=== PATIENT | female | born 1990 | race Caucasian/White ===

== ENCOUNTER 2021-08-17 19:33 | Inpatient (IN) | payer OTHER ==
[~2021-08-17] VITALS: Ht 157.5 cm; Wt 97.5 kg
--- NOTE | ~2021-08-17 | OR ---
[facility] [address] [place], [place] [address] Draft DATE OF OPERATION: 08/17/2021 SURGEON: Denton Canas DO PREOPERATIVE DIAGNOSES: Spontaneous onset of labor, history of prior , insufficient care, substance use disorder. POSTOPERATIVE DIAGNOSIS: Spontaneous onset of labor, history of prior , insufficient care, substance use disorder plus term delivered. PROCEDURE: Repeat low transverse . RECRUITING OPERATIONS CONSULTANT: Dr. Brown. COMPLICATIONS: None. BLOOD LOSS: 400 mL. SPECIMENS: Placenta, cord blood, segment of cord. ANESTHESIA: Spinal. FINDINGS: Viable term male weighing 6 pounds 5 ounces with Apgars of 9 and 10 at 1 and 5 minutes respectively. Normal-appearing bilateral tubes and ovaries. Prior Pfannenstiel scar without significant intraabdominal adhesions. INDICATIONS: The patient is a 30-year-old, G2, P1-0-0-1, who presented to [facility] via ambulance with complaint of spontaneous labor. Immediately upon arrival, limited bedside ultrasound was performed confirming a fundal placenta. Sterile vaginal exam demonstrated 8-cm cervical dilation with bulging bag of membranes. The patient was urgently consented for PATIENT NAME: GAMAL ROSS OPERATIVE REPORT DATE OF : [birth year] REPORT #: [id number] PHYSICIAN: DENTON CANAS DO PCP: NO PRIMARY CARE PHYSICIAN REPORT IS CONFIDENTIAL AND NOT TO BE RELEASED WITHOUT AUTHORIZATION [facility] [address] [place], [place] [address] Draft repeat . She did report use of fentanyl earlier in the day and reported no care for the last 3-4 months with dating by 14-week ultrasound, providing an estimated delivery date of 08/28/2021. Risks, benefits, and alternatives were reviewed and she elected to proceed. PROCEDURE IN DETAIL: The patient was taken back to the operating room, where spinal anesthesia was placed by COMPUTER SCIENCE PROFESSOR. She was moved to the operating room table and positioned in the supine position with a leftward tilt. She was prepped and draped in the normal sterile fashion. Thomason catheter was placed. She was given 2 g Ancef preoperatively. A Pfannenstiel incision was made through a prior scar with a scalpel and carried down to the underlying layer of fascia. The fascia was incised at midline and extended laterally with Andujar scissors. Inferior margin was grasped with Eusebio's, elevated and underlying rectus muscle was dissected off bluntly and sharply with Andujar scissors. This was released. Superior margin of fascia was grasped and elevated with Eusebio clamps. Underlying rectus muscle was dissected off bluntly and sharply with Andujar scissors. Peritoneum was entered bluntly and extended laterally with digital traction with a tight band on the right side released with Andujar scissors. The Max retractor was placed. Hysterotomy was made above the vesicouterine junction and 's head was elevated to the level of the incision with large amount of light meconium fluid expelled. Head, shoulders, and remainder of body were easily delivered. The baby gave a strong spontaneous cry immediately. Cord was doubly clamped and cut and baby was handed off to waiting nursery team including respiratory therapy and water system operator present during procedure. Segment of cord was collected for additional drug testing and cord blood was collected for type and Lauren. Placenta was delivered manually and noted to be intact. Uterus was cleared of clots and debris and hysterotomy was closed in a double-layer closure first with 0 Monocryl in a running locked fashion, second with 0 Monocryl in an imbricating manner. Small oozing areas of the perineum were cauterized with Bovie cautery. The pelvis was suction irrigated with warm sterile saline, noted to be hemostatic. Uterus, tubes, and ovaries were inspected with normal findings as noted above. A small anterior adhesion was noted between the omentum and the left anterior uterus, this was doubly clamped with hemostats, cut and the stump on either side was suture ligated with 0 Monocryl with resulting hemostasis. Peritoneum was closed with 2-0 Vicryl in a running manner. Rectus muscle was reapproximated in midline with 0 Vicryl in a simple interrupted manner. The rectus was then suction irrigated with warm sterile saline. Perforating vessels were cauterized with Bovie. Fascia was then closed working first right to midline, then left to midline with 0 Vicryl in a running manner. Subcutaneous perforating vessels were cauterized with Bovie cautery. Subcutaneous layer was suction irrigated with excellent hemostasis noted and subcutaneous layer was reapproximated with 3-0 Vicryl in a running fashion. The skin was closed in a subcuticular manner with 4-0 Monocryl and incision was top dressed with a sterile dressing. The uterus was Crede'd with minimal blood clots noted and fundus noted to be firm. Sponge and instrument PATIENT NAME: GAMAL ROSS OPERATIVE REPORT DATE OF : [birth year] REPORT #: [id number] PHYSICIAN: DENTON CANAS DO PCP: NO PRIMARY CARE PHYSICIAN REPORT IS CONFIDENTIAL AND NOT TO BE RELEASED WITHOUT AUTHORIZATION [address] [address] Draft counts were correct. The patient remained in the operating room for tap blocks to be placed for additional pain management before returning to her room for further recovery. DO KYLIE Nur/MAXIMILIANO /[id number] Copies: ~ PATIENT NAME: GAMAL ROSS OPERATIVE REPORT DATE OF : [birth year] REPORT #: [id number] PHYSICIAN: DENTON CANAS DO PCP: NO PRIMARY CARE PHYSICIAN REPORT IS CONFIDENTIAL AND NOT TO BE RELEASED WITHOUT AUTHORIZATION
[~2021-08-17 19:33] MED LIST: NO DAILY MEDICATIONS; PEPCID20 MG PO; PRENATAL VITAM1 EACH PO; SIMETHICONE80 MG PO; ZOFRAN4 MG PO
--- NOTE | 2021-08-18 09:51 | PR ---
[facility] [address] [place], [place] [address] Signed PP Progress Notes Datetime Report Generated by CPN: 08/18/2021 09:51 SUBJECTIVE: [id number] Pain: Within Normal Limits Nausea/Vomiting: Denies Flatus: No Bowel Movement: No Vital Signs: [id number] Vital Signs: Reviewed; Within Normal Limits Notable Details: BP elevated overnight, PReE labs negative Cardiovascular: Normal Respiratory: Normal Abdomen/Uterus: Normal Lochia: Normal Breasts: Normal Extremities: Normal Incision: Normal Progress: Normal Exam Comments: NAD, sitting up in bed eating breakfast RRR No dyspnea/ retractions Abd SNTND, FFBU, Incision dressing in place with minor strikethrough on the right, not extending beyond marking. Ext: Trace edema, neg Jose's BL. 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
--- NOTE | 2021-08-19 09:15 | PR ---
[facility] [address] [place], [place] [address] Signed PP Progress Notes Datetime Report Generated by HARPER: 08/19/2021 09:15 SUBJECTIVE: [id number] Pain: Within Normal Limits Nausea/Vomiting: Denies Flatus: Yes Bowel Movement: No Vital Signs: [id number] Vital Signs: Reviewed; Within Normal Limits Notable Details: Intermittent elevated BP, asympatomatic, PreE labs WNL 08/18/21 Cardiovascular: Normal Respiratory: Abnormal Abdomen/Uterus: Normal Lochia: Normal Breasts: Normal Extremities: Normal Incision: Normal Progress: Normal Exam Comments: NAD, sitting up in bed RRR No dyspnea/retractions, but productive cough present. Abd SNTND, Incision with dressing without any strikethrough. FFBU. Ext: Trace edema, neg Jose's BL. IMPRESSION/PLAN/PROCEDURES: [id number] Impression: Normal Progression Plan: Continue Present Management; Discharge Other Procedures: s/p Rhogam Progress Notes: Pt is a 30 yo POD #2 s/p RLTCS -Insufficient care: records from first OB visit this reviewed, normal serologies -Rh negative blood type, baby Rh positive, received Rhogam yesterday -Intermittent elevated BP, PreE labs negative, no severe pressures, asymptomatic -CHAPO: pain well-controlled on ibuprofen 800mg with percocet as needed for breakthrough pain. Tolerating Nicotine patches (14mg) and would like to continue. -H/o prior : recovering well. Ambulating, voiding, tolerating regular diet, pain well-controlled. Baby is being transferred for withdrawal symptoms, will discharge pt today Signing Physician: Denton Canas DO *Electronically Signed* 08/19/21914 DENTON CANAS DO PATIENT NAME: GAMAL ROSS EUGENIA PROGRESS NOTE DATE OF : 91 PHYSICIAN: DENTON CANAS DO RPT #: [id number] REPORT IS CONFIDENTIAL AND NOT TO BE RELEASED WITHOUT AUTHORIZATION [address] [address] Signed Copies: ~ *Electronically Signed* 08/19/21914 DENTON CANAS DO PATIENT NAME: GAMAL ROSS PROGRESS NOTE DATE OF : [birth year] PHYSICIAN: DENTON CANAS DO RPT #: [id number] REPORT IS CONFIDENTIAL AND NOT TO BE RELEASED WITHOUT AUTHORIZATION
--- NOTE | 2021-08-19 11:45 | PR ---
[facility] [address] [place], [place] [address] Signed PP Progress Notes Datetime Report Generated by HARPER: 08/19/2021 11:44 SUBJECTIVE: [id number] Pain: Within Normal Limits Nausea/Vomiting: Denies Flatus: Yes Bowel Movement: No Vital Signs: [id number] Vital Signs: Reviewed Notable Details: Persistently elevated BP Cardiovascular: Normal Respiratory: Abnormal Abdomen/Uterus: Normal Lochia: Normal Breasts: Normal Extremities: Normal Incision: Normal Progress: Normal Exam Comments: Sitting up in bed completing AMA paperwork IMPRESSION/PLAN/PROCEDURES: [id number] Impression: Induced Hypertension Plan: Continue Present Management; Discharge Other Plans: see below Other Procedures: s/p Rhogam Progress Notes: POD#2 s/p RLTCS -after rounding this morning, requested additional BPs. RN reported 150s/70, requested PreE labs be repeated, ordered. -RN called back stating transport was here to take baby to [facility] and pt was planning to ride along -Discussed leaving now, prior to return of PreE labs would be against medical advice due to change in status and concerning blood pressure checks. -Pt agreed to have labs drawn including straight catheter for P:C ratio, but did not consent to stay and await results/ possible treatment. She completed AMA paperwork and acknowledged risk of worsening condition/ with untreated preeclampsia. Plan: Follow-up in clinic on Tuesday (2d from now) for BP check. PreE precautions reviewed and pt instructed to go directly to [facility] ER for further evaluation if any headaches, vision changes, RUQ pain, OR if labs are abnormal concerning for worsening condition. She agreed to comply with these recommendations and accepted risk of *Electronically Signed* 08/19/21 1144 DENTON CANAS DO PATIENT NAME: GAMAL ROSS PROGRESS NOTE DATE OF : 91 PHYSICIAN: DENTON CANAS DO RPT #: [id number] REPORT IS CONFIDENTIAL AND NOT TO BE RELEASED WITHOUT AUTHORIZATION [address] [address] Signed leaving. Signing Physician: Denton Canas DO Copies: ~ *Electronically Signed* 08/19/21 1144 DENTON CANAS DO PATIENT NAME: GAMAL ROSSOL PROGRESS NOTE DATE OF : 91 PHYSICIAN: DENTON CANAS DO RPT #: [id number] REPORT IS CONFIDENTIAL AND NOT TO BE RELEASED WITHOUT AUTHORIZATION
== END 2021-08-19 12:00 | disposition left against medical advice (07) | DRG 787 ==
LOC: FBCO 19:33 → FBC 19:54
PROVIDERS: ADMIT Obstetrics & Gynecology; ATTEND Obstetrics & Gynecology
PROC: 10D00Z1 Extraction of Products of Conception, Low, Open Approach (ICD-10-PCS; principal; 2021-08-17 20:28)
PROC: 3E0334Z Introduction of Serum, Toxoid and Vaccine into Peripheral Vein, Percutaneous Approach (ICD-10-PCS; 2021-08-19)
DX: O34.211 Maternal care for low transverse scar from previous cesarean delivery (principal); O99.324 Drug use complicating childbirth; Z3A.38 38 weeks gestation of pregnancy; Z20.822 Contact with and (suspected) exposure to COVID-19; Z37.0 Single live birth; O77.0 Labor and delivery complicated by meconium in amniotic fluid; Z23 Encounter for immunization; O13.5 Gestational [pregnancy-induced] hypertension without significant proteinuria, complicating the puerperium; O26.893 Other specified pregnancy related conditions, third trimester; Z67.11 Type A blood, Rh negative; F15.90 Other stimulant use, unspecified, uncomplicated; Z79.899 Other long term (current) drug therapy
CPT/HCPCS: 01961; 36415; 82565; 82570; 83030; 83036; 83615; 84156; 84450; 84520; 84550; 85027; 86762; 86780; 86850; 86900; 86901; 87340; 87536; A9270; J0690; J1100; J1650; J1885; J2001; J2250; J2274; J2405; J2590; J2704; J2790; J2795; U0003

== ENCOUNTER 2025-04-10 15:30 | Inpatient (IN) | payer OTHER ==
[~2025-04-10] VITALS: Ht 157.5 cm; Wt 83.5 kg
[2025-04-16 05:58] VITALS: BP 139/83
[2025-04-16] MEDS ORDERED: LIDOCAINE 2% VISCOUS 6 ML SYR TOP ONE (06:15)
[2025-04-16] MEDS ORDERED: LACTATED RINGER'S 1,000 ML IV PRN (06:15)
[2025-04-16 06:16] LABS: MCH 29.7 PG (25.6-32.2); MCHC 34.1 g/dL (32.2-35.5); MCV 87.2 fL (79.4-94.8); RBC 4.44 M/uL (3.93-5.22)
[2025-04-16 06:57] LABS: AMPHETAMINES, URINE NEGATIVE (NEGATIVE); BARBITURATES, URINE NEGATIVE (NEGATIVE); BENZODIAZEPINE, URINE NEGATIVE (NEGATIVE); CANNABINOID, URINE POSITIVE (NEGATIVE); COCAINE, URINE NEGATIVE (NEGATIVE); ECSTASY, URINE NEGATIVE (NEGATIVE); FENTANYL, URINE NEGATIVE (NEGATIVE); METHADONE, URINE POSITIVE (NEGATIVE); OPIATES, URINE NEGATIVE (NEGATIVE); OXYCODONE, URINE NEGATIVE (NEGATIVE); PHENCYCLIDINE, URINE NEGATIVE (NEGATIVE)
[2025-04-16] MEDS ORDERED: CEFAZOLIN SODIUM 2 GM in SODIUM CHLORIDE 0.9% 100 ML IV SCH (07:00)
[2025-04-16] MEDS ORDERED: OXYTOCIN 10 UNITS/ML VIAL ONE (07:15)
[2025-04-16] MEDS ORDERED: LIDOCAINE HCL 2% 5 ML SDV ONE (07:15)
[2025-04-16] MEDS ORDERED: BUPIVACAINE 0.75% IN DEXTROSE 2 ML AMP ONE (07:15)
[2025-04-16] MEDS ORDERED: MORPHINE SULFATE 1 MG/ML VIAL ONE (07:16)
[2025-04-16] MEDS ORDERED: fentaNYL citrate 100 MCG/2 ML VIAL ONE (07:16)
[2025-04-16] MEDS ORDERED: Ropivacaine HCl 0.5% 30 ML VIAL ONE (07:16)
[2025-04-16] MEDS ORDERED: SODIUM CHLORIDE 0.9% 20 ML IV ONE (07:16)
[2025-04-16 07:36] LABS: ABO A; ANTIBODY SCREEN POSITIVE; RH NEGATIVE
[2025-04-16 07:38] LABS: ANTIBODY IDENTIFICATION ANTI-D
[2025-04-16] MEDS ORDERED: HYDROmorphone HCL 1 MG/ML SYR IV PRN (08:00)
[2025-04-16] MEDS ORDERED: KETOROLAC TROMETHAMINE 30 MG/ML VIAL IV PRN (08:00)
[2025-04-16] MEDS ORDERED: PROCHLORPERAZINE EDISYLATE 10 MG/2 ML VIAL IV PRN ×2 (08:00→08:45)
[2025-04-16] MEDS ORDERED: NALOXONE HCL 0.4 MG SYR IV PRN (08:00)
[2025-04-16] MEDS ORDERED: DEXAMETHASONE SOD PHOS 4 MG/ML VIAL ONE (08:02)
[2025-04-16] MEDS ORDERED: SEVOFLURANE 250 ML BTL INH ONE (08:39)
[2025-04-16] MEDS ORDERED: LACTATED RINGER'S 1,000 ML IV SCH ×2 (08:41→09:45)
[2025-04-16] MEDS ORDERED: OXYCODONE HCL 5 MG TAB PO PRN (08:45)
[2025-04-16] MEDS ORDERED: PROMETHAZINE HCL 25 MG SUPP PR PRN (08:45)
[2025-04-16] MEDS ORDERED: METOCLOPRAMIDE HCL 10 MG/2 ML SDV IV PRN (08:45)
[2025-04-16] MEDS ORDERED: OXYTOCIN/0.9 % SODIUM CHLORIDE 500 ML IV SCH (08:45)
[2025-04-16] MEDS ORDERED: HYDROCODONE/ACETA 5/325 TAB PO PRN (08:45)
[2025-04-16] MEDS ORDERED: PROMETHAZINE HCL 25 MG TAB PO PRN (08:45)
[2025-04-16] MEDS ORDERED: OXYCODONE/APAP 5/325 TAB PO PRN (08:45)
--- NOTE | 2025-04-16 08:54 | NUR ---
04/16/25 0854 Nancy Baugh 0841-PATIENT ARRIVED TO ROOM 106 [facility] RECOVERY. PATIENT AWAKE DENIES PAIN OR NAUSEA. SPINAL T10. RA 98% RR EVEN. LR WITH 20 PITOCIN TO LEFT ARM INFUSING. SINUS BRADYCARDIA HR LOWER 40'S. PATIENT WANTING TO SIT BED UP EDUCATED ABOUT GOING SLOW WITH RAISING. SIGNIFICANT OTHER AT BEDSIDE AND BED PLUGGED IN. CALL LIGHT IN REACH RUIZ CATHETER DRAINING YELLOW URINE 0848-ZAY RN ASSESSING FUNDUS A T UMBILICUS LIGHT RUBRA DRAINAGE ON KELL PAD. 0853-PATIENT FEEDING BABY TO BREAST DENIES PAIN OR NAUSEA.
[2025-04-16] MEDS ORDERED: SENNOSIDES/DOCUSATE 1 EA TAB PO SCH (09:00)
[2025-04-16] MEDS ORDERED: OXYTOCIN/0.9 % SODIUM CHLORIDE 500 ML IV ONE (09:09)
--- NOTE | 2025-04-16 09:43 | PR ---
[facility] [address] [facility] [place] [address] Signed PP Progress Notes Datetime Report Generated by CPN: 04/16/2025 09:43 SUBJECTIVE: [id number] Pain: Within Normal Limits Vital Signs: [id number] Vital Signs: Reviewed Cardiovascular: Abnormal Respiratory: Normal Abdomen/Uterus: Normal Extremities: Normal Exam Comments: Pt resting comfortably in bed; no distress. No lightheadedness/dizziness IMPRESSION/PLAN/PROCEDURES: [id number] Impression: Induced Hypertension Progress Notes: Pt w/ persistant severe range BPs postop / following C/S. Will check labs. Start magnesium and hydralazine given maternal bradycardia. Signing Physician: Nicolas Brown DO Copies: ~ *Electronically Signed* 04/16/25 0943 NICOLAS BROWN) DO PATIENT NAME: GAMAL ROSS PROGRESS NOTE DATE OF : 91 PHYSICIAN: NICOLAS BROWN DO (JD) RPT #: [id number] REPORT IS CONFIDENTIAL AND NOT TO BE RELEASED WITHOUT AUTHORIZATION
[2025-04-16] MEDS ORDERED: MAGNESIUM SULFATE 500 ML IV SCH (09:45)
[2025-04-16] MEDS ORDERED: CALCIUM GLUCONATE 1,000 MG/10 ML VIAL IV PRN (09:45)
[2025-04-16] MEDS ORDERED: LABETALOL HCL 100 MG/20 ML MDV IV PRN ×3 (09:45)
[2025-04-16 09:56] LABS: MCH 29.6 PG (25.6-32.2); MCHC 33.4 g/dL (32.2-35.5); MCV 88.5 fL (79.4-94.8); RBC 4.26 M/uL (3.93-5.22)
[2025-04-16] MEDS ORDERED: KETOROLAC TROMETHAMINE 30 MG/ML VIAL IV SCH (10:00)
[2025-04-16 10:14] LABS: ALT (SGPT) 14.0 U/L (14-59); AST (SGOT) 17.0 U/L (15-37); GLOMERULAR FILTRATION RATE,EST 115.0 mL/min (>60); LACTATE DEHYDROGENASE 157.0 U/L (81-234); PROTEIN, TOTAL 6.0 g/dL (6.4-8.2); UREA NITROGEN 13.0 mg/dL (7-18)
--- NOTE | 2025-04-16 10:59 | EKG ---
[facility] [address] [facility] [place] [address] Signed Sinus bradycardia T wave abnormality, consider anterior ischemia Abnormal ECG No previous ECGs available Confirmed by Santos Rosales DO ([id number]) on 04/16/2025 10:58:52 AM Electronically Signed By: SANTOS ROSALES DO 04/16/25 1059 PATIENT NAME: GAMAL ROSS Electrocardiogram DATE OF : 91 PHYSICIAN: SANTOS ROSALES DO REPORT #: [id number] REPORT IS CONFIDENTIAL AND NOT TO BE RELEASED WITHOUT AUTHORIZATION
[2025-04-16] MEDS ORDERED: MAGNESIUM SULFATE 4 GM/100 ML BAG IV ONE (11:00)
[2025-04-16] MEDS ORDERED: SIMETHICONE 80 MG CHEW PO SCH (11:00)
[2025-04-16] MEDS ORDERED: MAGNESIUM SULFATE 2 GM/50 ML BAG IV ONE (11:00)
[2025-04-16 13:33] LABS: PROTEIN, RANDOM URINE 15.0 mg/dL (NOT ESTABLISHED)
[2025-04-16] MEDS ORDERED: METHADONE HCL 10 MG TAB PO SCH (15:00)
[2025-04-16] MEDS ORDERED: ENOXAPARIN SODIUM 40 MG/0.4 ML SYR SUB-Q SCH (18:00)
--- NOTE | 2025-04-17 00:58 | PR ---
[facility] [address] [place], [place] [address] Signed PP Progress Notes Datetime Report Generated by CPN: 04/17/2025 00:58 Pain: Within Normal Limits Nausea/Vomiting: Denies Flatus: Yes Bowel Movement: No Vital Signs: Reviewed; Within Normal Limits Cardiovascular: Normal Respiratory: Normal Abdomen/Uterus: Normal Lochia: Normal Vulva/Perineum: Not Done Breasts: Not Done CVA Tenderness: Normal Extremities: Normal Incision: Normal Exam Comments: Fundus firm tender to deep palpation but within expected postoperative tenderness. U=0. Bandage saturated but no hematoma / additional bleeding noted w/ bandage removal. Impression: Normal Progression Progress Notes: Called to evaluate pt w/ postop tenderness and incisional oozing. On exam, U=0 and somewhat tender on deep palpation. No bleeding with fundal massage. This pain is reportedly increased from her baseline. Pt's bandage is saturated but not having active bleeding. Again, on exam appears to be within normal limits and pain likely due to TAP block beginning to wear off. Discussed options for management and pt declines any additional medications. She did receive norco x 2 tab just prior to my arrival. She would like to avoid additional narcotics if possible. Will continue to monitor. All questions answered. Signing Physician: Nicolas Brown DO Copies: ~ *Electronically Signed* 04/17/25 0058 NICOLAS BROWN (KODAK) DO PATIENT NAME: GAMAL ROSS PROGRESS NOTE DATE OF : 91 PHYSICIAN: NICOLAS BROWN (JD) DO RPT #: [id number] REPORT IS CONFIDENTIAL AND NOT TO BE RELEASED WITHOUT AUTHORIZATION
[2025-04-17] MEDS ORDERED: IBUPROFEN 600 MG TAB PO SCH ×2 (02:00→08:00)
[2025-04-17] MEDS ORDERED: LACTATED RINGER'S 1,000 ML IV SCH (05:00)
[2025-04-17 05:56] LABS: MCH 30.1 PG (25.6-32.2); MCHC 33.3 g/dL (32.2-35.5); MCV 90.3 fL (79.4-94.8); RBC 2.99 M/uL (3.93-5.22)
[2025-04-17] MEDS ORDERED: KETOROLAC TROMETHAMINE 30 MG/ML VIAL ONE (06:14)
[2025-04-17 07:15] LABS: BASOPHILS 0.2 % (0.1-1.2); EOSINOPHILS 0.2 % (0.7-5.8); LYMPHOCYTES 21.3 % (19.3-51.7); MCH 30.0 PG (25.6-32.2); MCHC 33.5 g/dL (32.2-35.5); MCV 89.8 fL (79.4-94.8); MONOCYTES 4.3 % (4.7-12.5); NEUTROPHILS 73.7 % (34.0-71.1); RBC 2.83 M/uL (3.93-5.22)
[2025-04-17 07:31] LABS: ABO A; RH NEGATIVE
[2025-04-17 07:32] LABS: ANTIBODY SCREEN NEGATIVE; FETAL HEMOGLOBIN SCREEN POSITIVE; RHIG STATUS CANDIDATE
[2025-04-17] MEDS ORDERED: NIFEdipine XL 30 MG TAB PO SCH (09:00)
[2025-04-17] MEDS ORDERED: TRANEXAMIC ACID IN NACL,ISO-OS 100 ML IV ONE (09:22)
--- NOTE | 2025-04-17 09:26 | PR ---
[facility] [address] [facility] [place], [place] [address] Signed PP Progress Notes Datetime Report Generated by CPN: 04/17/2025 09:26 Procedures: Transfusion Other Procedures: Surgery Progress Notes: Pt w/ large hematoma on CT w/ continued active bleeding. Type and cross x 2 units, CBC, coags, and fibrinogen now. Pt consented for exploratory laparotomy, evaluation of hematoma, and repair of any bleeding vesssel. Tranexamic acid 1g IV now. Pt consented for blood transfusion. Reviewed procedure in detail including risks, benefits and alternatives. All questions answered. Signing Physician: Nicolas Brown DO Copies: ~ *Electronically Signed* 04/17/25925 NICOLAS BROWN) DO PATIENT NAME: GAMAL ROSS PROGRESS NOTE DATE OF : 91 PHYSICIAN: NICOLAS BROWN DO (JD) RPT #: [id number] REPORT IS CONFIDENTIAL AND NOT TO BE RELEASED WITHOUT AUTHORIZATION
[2025-04-17] MEDS ORDERED: TRANEXAMIC ACID IN NACL,ISO-OS 1,000 MG/100 ML PIGGYBACK IV ONE ×3 (09:30→17:00)
[2025-04-17 09:45] LABS: MCH 30.0 PG (25.6-32.2); MCHC 33.3 g/dL (32.2-35.5); MCV 90.1 fL (79.4-94.8); RBC 2.83 M/uL (3.93-5.22)
[2025-04-17 09:50] LABS: IS CROSSMATCH COMPATIBLE
[2025-04-17 09:54] LABS: INR 0.99 (0.80-1.30); PROTIME 12.7 Sec (11.2-14.2)
[2025-04-17] MEDS ORDERED: SODIUM CHLORIDE 0.9% 100 ML IV ONE (10:06)
[2025-04-17] MEDS ORDERED: CEFAZOLIN SODIUM 2 GM VIAL ONE (10:06)
[2025-04-17] MEDS ORDERED: ROCURONIUM BROMIDE 50 MG/5 ML SYR ONE (10:14)
[2025-04-17] MEDS ORDERED: LIDOCAINE HCL 2% 5 ML SDV ONE (10:14)
[2025-04-17] MEDS ORDERED: SUGAMMADEX SODIUM 200 MG/2 ML ML ONE (10:14)
[2025-04-17] MEDS ORDERED: fentaNYL citrate 100 MCG/2 ML VIAL ONE (10:14)
[2025-04-17] MEDS ORDERED: CEFAZOLIN SODIUM 2 GM in SODIUM CHLORIDE 0.9% 100 ML IV ONE (10:15)
[2025-04-17] MEDS ORDERED: SODIUM CHLORIDE 0.9% 1,000 ML IV ONE (10:30)
[2025-04-17] MEDS ORDERED: TRANEXAMIC ACID 1,000 MG/10 ML AMP ONE (10:39)
[2025-04-17] MEDS ORDERED: LACTATED RINGER'S 1,000 ML IV ONE (10:42)
[2025-04-17] MEDS ORDERED: MIDAZOLAM HCL 2 MG/2 ML VIAL IV PRN (10:45)
[2025-04-17] MEDS ORDERED: NALOXONE HCL 0.4 MG SYR IV PRN (10:45)
[2025-04-17] MEDS ORDERED: IBLOOD GLUCOSE TEST STRIP 1 EA TEST VI PRN (10:45)
[2025-04-17] MEDS ORDERED: fentaNYL citrate 100 MCG/2 ML VIAL IV PRN (12:15)
[2025-04-17] MEDS ORDERED: ACETAMINOPHEN 1,000 MG/100 ML VIAL IV ONE (12:15)
[2025-04-17] MEDS ORDERED: fentaNYL citrate 50 MCG/ML SDV ONE (12:18)
[2025-04-17 12:27] LABS: MCH 30.0 PG (25.6-32.2); MCHC 33.8 g/dL (32.2-35.5); MCV 88.8 fL (79.4-94.8); RBC 3.3 M/uL (3.93-5.22)
[2025-04-17 12:38] LABS: INR 1.01 (0.80-1.30); PROTIME 12.9 Sec (11.2-14.2)
--- NOTE | 2025-04-17 13:44 | NUR ---
04/17/25 1344 Irene Ventura 1200- PT ARRIVES TO PACU, SEMI GARNICA POSITION, AWAKE BUT DROWSY. PT TEARFUL AND C/O PAIN. ABD SOFT, NON DISTENDED. DRESSING CDI, DRAIN IN PLACE TO LEFT LOWER ABD. RUIZ CATHETER DRAINING, CLEAR YELLOW URINE. BREATHING EVEN AND NON LABORED ON 6L O2 PER MASK. 18 G SALINE LOCK IN PLACE TO LFA, DRESSING CDI. 18 G IV TO LH, DRESSING CDI. ALL MONITORS IN PLACE. PT RECEIVED PAIN MEDICATION IN ROUTE TO PACU. 1204- PT C/O 8/10 PAIN, VERBAL ORDERS RECEIVED FROM Stiven PADILLA CRNA. 1207- PT MOVED TO ROOM AIR. 1220- PT MEDICATED WITH FENTANYL FOR 8/10 AND 1 GM TYLENOL IV STARTED. 1222- LAB AT BEDSIDE TO COLLECT BLOOD FOR NEW ORDERS. 1225- NEETA DRAIN EMPTIED, 30 [address] BLOOD NOTED. DR SANTANA IS AWARE. 1234- PT MEDICATED WITH 2ND DOSE OF FENTANYL FOR 7/10 PAIN. ICE PACK PLACED TO ABD. 1248- PT REPORTS PAIN IS MORE TOLERABLE, 4/10. NEETA DRAINED FOR 2ND TIME, 35 ML OF [address]VERO BLOOD. DR SANTANA IS AWARE AND REPORTS PT OK TO GO TO [facility] AND CONTINUE MONITORING. 1255- DR SANTANA AT BEDSIDE, AWARE NEETA DRAIN FILLING FOR 3RD TIME. WILL CONTINUE TO MONITOR. 1310- PT TAKEN TO [facility] ROOM 106, DAD AND BABY IN ROOM. PT IV TO LH SALINE LOCKED. DRESSING AND DRAIN ASSESSED WITH RN. ABD SOFT. REPORT GIVEN TO Peggy MAGANA RN AT BEDSIDE, BED PLUGGED IN, CARE OF PT TURNED OVER AT THIS TIME.
--- NOTE | 2025-04-17 17:39 | PR ---
[facility] [address] [place] [address] Signed PP Progress Notes Datetime Report Generated by CPN: 04/17/2025 17:39 Pain: Within Normal Limits Nausea/Vomiting: Denies Flatus: Yes Vital Signs: Reviewed; Within Normal Limits Cardiovascular: Normal Respiratory: Normal Abdomen/Uterus: Normal Lochia: Normal Vulva/Perineum: Not Done Breasts: Not Done CVA Tenderness: Normal Extremities: Normal Incision: Normal Exam Comments: Fundus firm U-2 nontender. NEETA draining small amount of blood. Pt sitting up laughing and joking in good spirits. Progress Notes: Pt seen and evaluated. Doing well. FFP and TXA ordered. 18:00 labs pending. Will continue to monitor NEETA out put and clinical symptoms closely. All questions answered. Signing Physician: Nicolas Brown DO Copies: ~ *Electronically Signed* 04/17/25 9597 NICOLAS BROWN) DO PATIENT NAME: GAMAL ROSS PROGRESS NOTE DATE OF : 91 PHYSICIAN: NICOLAS BROWN) DO RPT #: [id number] REPORT IS CONFIDENTIAL AND NOT TO BE RELEASED WITHOUT AUTHORIZATION
[2025-04-17 18:10] LABS: BASOPHILS 0.3 % (0.1-1.2); EOSINOPHILS 0.3 % (0.7-5.8); LYMPHOCYTES 17.2 % (19.3-51.7); MCH 29.8 PG (25.6-32.2); MCHC 33.7 g/dL (32.2-35.5); MCV 88.3 fL (79.4-94.8); MONOCYTES 4.8 % (4.7-12.5); NEUTROPHILS 77.1 % (34.0-71.1); RBC 3.09 M/uL (3.93-5.22)
[2025-04-17 18:26] LABS: INR 0.98 (0.80-1.30); PROTIME 12.4 Sec (11.2-14.2)
[2025-04-18 00:16] LABS: BASOPHILS 0.3 % (0.1-1.2); EOSINOPHILS 1.0 % (0.7-5.8); LYMPHOCYTES 21.1 % (19.3-51.7); MCH 29.7 PG (25.6-32.2); MCHC 33.3 g/dL (32.2-35.5); MCV 89.0 fL (79.4-94.8); MONOCYTES 4.6 % (4.7-12.5); NEUTROPHILS 72.7 % (34.0-71.1); RBC 3.10 M/uL (3.93-5.22)
[2025-04-18 00:31] LABS: INR 0.96 (0.80-1.30); PROTIME 12.1 Sec (11.2-14.2)
[2025-04-18 06:08] LABS: BASOPHILS 0.3 % (0.1-1.2); EOSINOPHILS 1.5 % (0.7-5.8); LYMPHOCYTES 24.1 % (19.3-51.7); MCH 29.2 PG (25.6-32.2); MCHC 33.2 g/dL (32.2-35.5); MCV 88.0 fL (79.4-94.8); MONOCYTES 5.5 % (4.7-12.5); NEUTROPHILS 68.4 % (34.0-71.1); RBC 2.91 M/uL (3.93-5.22)
[2025-04-18 06:24] LABS: INR 0.99 (0.80-1.30); PROTIME 12.7 Sec (11.2-14.2)
[2025-04-18 12:12] LABS: BASOPHILS 0.3 % (0.1-1.2); EOSINOPHILS 0.8 % (0.7-5.8); LYMPHOCYTES 18.2 % (19.3-51.7); MCH 29.7 PG (25.6-32.2); MCHC 33.3 g/dL (32.2-35.5); MCV 89.2 fL (79.4-94.8); MONOCYTES 5.6 % (4.7-12.5); NEUTROPHILS 74.8 % (34.0-71.1); RBC 3.23 M/uL (3.93-5.22)
[2025-04-18 12:23] LABS: INR 0.95 (0.80-1.30); PROTIME 12.3 Sec (11.2-14.2)
--- NOTE | 2025-04-18 12:52 | PR ---
[facility] [address] [facility] [place], [place] [address] Signed PP Progress Notes Datetime Report Generated by CPN: 04/18/2025 12:52 Pain: Within Normal Limits Nausea/Vomiting: Denies Flatus: Yes Vital Signs: Reviewed; Within Normal Limits Cardiovascular: Normal Respiratory: Normal Abdomen/Uterus: Normal Lochia: Normal Vulva/Perineum: Not Done Breasts: Not Done CVA Tenderness: Normal Extremities: Normal Incision: Normal Progress: Normal Exam Comments: Fundus firm U-2 nontender. Drain w/ small amount sero-sangenous fluid. Much improved from yesterday Impression: Normal Progression Plan: Continue Present Management Progress Notes: Pt doing well. Ambulating voiding and tolerating full diet. Pain and lochia minimal. Breast and bottle feeding. NEETA output minimal. Labs improved. No concerns. Anticpate d/c home tomorrow. Signing Physician: Nicloas Brown DO Copies: ~ *Electronically Signed* 04/18/25 1254 NCIOLAS BROWN (KODAK) DO PATIENT NAME: GAMAL ROSS EUGENIA PROGRESS NOTE DATE OF : 91 PHYSICIAN: NICOLAS BROWN (KODAK) DO RPT #: [id number] REPORT IS CONFIDENTIAL AND NOT TO BE RELEASED WITHOUT AUTHORIZATION
[2025-04-18 16:45] LABS: FETAL HGB - PERCENT FETAL RBCS 0.117 % (0.000-0.124)
[2025-04-19 05:31] LABS: BASOPHILS 0.1 % (0.1-1.2); EOSINOPHILS 2.2 % (0.7-5.8); LYMPHOCYTES 36.2 % (19.3-51.7); MCH 29.7 PG (25.6-32.2); MCHC 33.3 g/dL (32.2-35.5); MCV 89.0 fL (79.4-94.8); MONOCYTES 5.7 % (4.7-12.5); NEUTROPHILS 55.6 % (34.0-71.1); RBC 2.83 M/uL (3.93-5.22)
[2025-04-19 08:10] LABS: RHIG DOSE 2
--- NOTE | 2025-04-19 16:06 | PR ---
[facility] [address] [facility] [place], [place] [address] Signed PP Progress Notes Datetime Report Generated by CPN: 04/19/2025 16:06 Pain: Within Normal Limits Nausea/Vomiting: Denies Bowel Movement: No Vital Signs: Reviewed Cardiovascular: Normal Respiratory: Normal Abdomen/Uterus: Normal Lochia: Normal Vulva/Perineum: Not Done Breasts: Not Done CVA Tenderness: Normal Extremities: Normal Incision: Normal Progress: Normal Exam Comments: Scant sero-sanguinous drainage in NEETA. Impression: Normal Progression Plan: Continue Present Management Progress Notes: Pt seen and examined. Doing well. 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 Much more bruising and edema of abdomen and vulva (exam w/ RN as manager drug). Will keep patient one more day to monitor bruising and NEETA drain. to stay one additional day to monitor for withdrawal symptoms. Anticipate d/c home tomorrow. Signing Physician: Nicolas Brown DO Copies: ~ *Electronically Signed* 04/19/25 3319 NICOLAS BROWN (KODAK) DO PATIENT NAME: GAMAL ROSS EUGENIA PROGRESS NOTE DATE OF : 91 PHYSICIAN: NICOLAS BROWN (KODAK) DO RPT #: [id number] REPORT IS CONFIDENTIAL AND NOT TO BE RELEASED WITHOUT AUTHORIZATION
[2025-04-20 05:29] LABS: MCH 29.9 PG (25.6-32.2); MCHC 33.6 g/dL (32.2-35.5); MCV 88.8 fL (79.4-94.8); RBC 2.78 M/uL (3.93-5.22)
[2025-04-20 08:39] VITALS: BP 139/72
--- NOTE | 2025-04-21 20:14 | OR ---
[facility] [address], [place] [address] Signed DATE OF OPERATION: 04/17/2025 SURGEON: Nicolas Brown DO PREOPERATIVE DIAGNOSES: 1. Status post repeat section, postop day #1. 2. Large rectus sheath hematoma postoperatively. 3. Acute blood loss anemia. 4. Status post hypertensive crisis. POSTOPERATIVE DIAGNOSES: 1. Status post repeat section, postop day #1. 2. Large rectus sheath hematoma postoperatively. 3. Acute blood loss anemia. 4. Status post hypertensive crisis. PROCEDURES PERFORMED: 1. Exploratory laparotomy. 2. Evacuation of rectus sheath hematoma. 3. Evacuation of hemoperitoneum. 4. Repair of bleeding vessels. 5. Ang drain placement. PUBLIC RELATIONS WRITER: BUSINESS EDUCATION PROFESSOR. ANESTHESIA: General. Clot removed, 990 mL by weight. QUANTITATIVE BLOOD LOSS: 100 mL additional. DRAINS: 1. Ang drain to the left lower quadrant. 2. Thomason to gravity. COMPLICATIONS: None. Electronically Signed By: NICOLAS BROWN DO (JD) 04/21/252013 PATIENT NAME: GAMAL ROSS OPERATIVE REPORT DATE OF : [birth year] REPORT #: [id number] PHYSICIAN: NICOLAS BROWN DO (JD) PCP: NO PRIMARY CARE PHYSICIAN REPORT IS CONFIDENTIAL AND NOT TO BE RELEASED WITHOUT AUTHORIZATION [facility] [address] [place] [id number] Signed SPECIMENS: None. INDICATIONS: Ms. Ross is a very pleasant 34-year-old female, status post repeat postop day #1. Shortly after her delivery, the patient had a hypertensive crisis with systolic blood pressures over 200. She received antihypertensive and magnesium per protocol. The patient initially did well but developed increasing abdominal pain and some abdominal distention overnight. I came and evaluated the patient. Pain was well controlled and bleeding was minimal. Her vital signs were normal. This morning, the patient's hemoglobin dropped significantly more than anticipated and increasing abdominal mass was felt concerning for rectus sheath hematoma. Imaging was ordered with an ultrasound that confirmed a large hematoma and CT scan was performed that demonstrated 16 x 16 x 9 cm rectus sheath hematoma with active extravasation. The patient was consented for surgery, received 2 units of blood and tranexamic acid. Risks, benefits, and alternatives were discussed in detail with the patient. The patient understands and wished to proceed with the procedure. DESCRIPTION OF PROCEDURE: The patient was taken to the OR where a time-out was performed to confirm correct patient and correct procedure. General anesthesia was adequately established. The patient was prepped and draped in the supine position. Thomason catheter had been previously inserted. No preoperative heparin was indicated and the patient received Ancef 2 g preoperatively. Surgical angelito were removed and subcuticular suture was excised. Fascia was opened along the prior incision by removing the surgical suture. Upon entry into the rectus sheath, a large volume hematoma was encountered. This was manually removed and completely evacuated and weighed for a total volume of 990 mL. The rectus was then packed and explored diligently and carefully quadrant by quadrant. Small amount of oozing was noted in the left upper quadrant, this was made hemostatic with Bovie electrocautery. CT suggested that the bleeding was likely from the left lower quadrant, this was examined very closely. Small amount of oozing was noted at the inferior edge of the rectus sheath as well as some oozing from the belly of the rectus. The rectus was repaired using 2-0 chromic with excellent hemostasis. The inferior oozing was made hemostatic with Bovie electrocautery, Sanjuanita and Tisseel. This was repacked and re-evaluated later in the case. Attention was turned to the right lower quadrant where no additional oozing was noted. In the right upper quadrant, small amount of oozing was noted and made hemostatic. Some blood was noted in the peritoneum. Decision was made to open the peritoneum for the remainder of the surgical field. The peritoneal incisions were removed and the peritoneum was noted to have some non-clotted blood present likely due to the presence of clot in the rectus sheath. Again, no active bleeding was noted on the CT and the peritoneal cavity. The uterus, tubes, ovaries, Electronically Signed By: NICOLAS MONTOYA) DO MAX 04/21/252013 PATIENT NAME: GAMAL ROSS OPERATIVE REPORT DATE OF : [birth year] REPORT #: [id number] PHYSICIAN: NICOLAS BROWN) PCP: NO PRIMARY CARE PHYSICIAN REPORT IS CONFIDENTIAL AND NOT TO BE RELEASED WITHOUT AUTHORIZATION [facility] [address], [place] [address] Signed cul-de-sac gutters and bladder were carefully examined. Small amount of oozing less than 2 to 3 mL were noted in the lower uterine segment/bladder flap. This was made hemostatic with judicious use of Bovie electrocautery. The peritoneal cavity was copiously irrigated with large amount of crystalloid and no additional bleeding was noted. All blood and irrigant was removed. The peritoneum was reapproximated using 2-0 Vicryl in a running nonlocked suture. Moderate amount of bleeding was noted on the right upper quadrant between the peritoneum and the rectus sheath. This was made hemostatic with Bovie electrocautery as well as Tisseel and Sanjuanita. Once hemostasis was assured, Gelfoam was also placed into the space. Intraoperative x-ray was performed at this point, as an additional official count was not performed prior to entry into the peritoneal cavity. No instruments or laps were noted on the x-ray and the surgery proceeded. The packing was removed from all four quadrants of the rectus sheath and no additional bleeding was noted. Tisseel and Sanjuanita were applied to the rectus surfaces and again no additional bleeding was noted. Gelfoam was placed in the left lower quadrant rectus sheath. A Ang drain #7 was placed in the left lower quadrant without difficulty. Once hemostasis was again appreciated on all surfaces, the rectus was then closed using 0 Vicryl in a running nonlocked manner. Subcu was reapproximated using 3-0 Vicryl in a running nonlocked manner. Subcu was irrigated and was hemostatic. Skin was then reapproximated using surgical angelito. The patient was then taken to PACU in good and stable condition. Sponge, needle and instrument counts were correct x2 at the end of the procedure. DO VIKY Everett/MAXIMILIANOL /[id number] Copies: ~ Electronically Signed By: NICOLAS BROWN DO (JD) 04/21/252013 PATIENT NAME: GAMAL ROSS OPERATIVE REPORT DATE OF : [birth year] REPORT #: [id number] PHYSICIAN: NICOLAS BROWN) PCP: NO PRIMARY CARE PHYSICIAN REPORT IS CONFIDENTIAL AND NOT TO BE RELEASED WITHOUT AUTHORIZATION
--- NOTE | 2025-04-21 20:18 | OR ---
[facility] [address] [place] [id number] Signed DATE OF OPERATION: 04/16/2025 SURGEON: Nicolas Brown DO PREOPERATIVE DIAGNOSES: 1. Intrauterine at 39 weeks' gestation. 2. History of prior section. 3. Opioid maintenance. POSTOPERATIVE DIAGNOSES: 1. Intrauterine at 39 weeks' gestation. 2. History of prior section. 3. Opioid maintenance. 4. Abdominal and pelvic adhesions. PROCEDURES PERFORMED: 1. Repeat low transverse section. 2. Lysis of adhesions. JEWEL DIAMETER GAUGER: LEASING ASSISTANT. ANESTHESIA: Spinal with postoperative tap blocks. QUANTITATIVE BLOOD LOSS: 250 mL. DRAINS: Thomason to gravity. SPECIMENS: Cord blood for routine analysis. COMPLICATIONS: None. FINDINGS: Delivery of viable male , 5 pounds 11 ounces with Apgars 9 and 9. No nuchal cord. Clear amniotic fluid. Normal uterus, tubes, and ovaries other than some mild Electronically Signed By: NICOLAS BROWN DO (JD) 04/21/252017 PATIENT NAME: GAMAL ROSS OPERATIVE REPORT DATE OF : [birth year] REPORT #: [id number] PHYSICIAN: NICOLAS BROWN DO (JD) PCP: NO PRIMARY CARE PHYSICIAN REPORT IS CONFIDENTIAL AND NOT TO BE RELEASED WITHOUT AUTHORIZATION [facility] [address] [place] [id number] Signed scarring of the bladder to the lower uterine segment. Omental adhesions to the anterior abdominal wall that were lysed without complication. INDICATIONS: Ms. Ross is a very pleasant 34-year-old female with history of prior , who presents for repeat low transverse section at her 39th week gestation. complicated by prior C-sections and opioid maintenance. We reviewed the procedure, and the patient declines bilateral salpingectomy. Risks, benefits, and alternatives of repeat were discussed in detail. The patient understands and wishes to proceed with the procedure. TECHNIQUE: The patient was taken to the OR. A time-out was performed to confirm correct patient, correct procedure. Spinal anesthesia was adequately established. The patient was prepped and draped in the supine position with a bump under the right hip. Thomason catheter was inserted. The patient received Ancef 2 g preoperatively, and no heparin was indicated. Once neuraxial anesthesia was noted to be adequate, a Pfannenstiel skin incision was made through the prior incision and carried down to the fascia. Fascia was nicked in the midline, and fascial incision was extended bilaterally using curved Andujar scissors. Fascia was grasped with Eusebio's, elevated, and the underlying rectus dissected off bluntly and sharply. Rectus was divided in midline, and peritoneum was entered bluntly. Peritoneal incision was extended cephalad and caudad using sharp and blunt dissection. Omental adhesions were noted superior to the peritoneal incision. Max self-retractor was placed, and the lower uterine segment was identified. The bladder was somewhat high-riding and scarring to the lower uterine segment. A bladder flap was created using Metzenbaum scissors, and the bladder was pushed well below the lower uterine segment. Hysterotomy was then performed using a surgical scalpel. Clear amniotic fluid was noted. Hysterotomy was extended bilaterally using blunt dissection. The surgeon's hand was placed in the uterine cavity, and the vertex was delivered easily, and the remainder of the was delivered easily with the assistance of fundal pressure. was vigorous and cried upon delivery. Cord was doubly clamped and cut, and the was handed to the waiting pediatric team for further care. Cord blood was obtained for routine analysis. The placenta was expressed intact with a centrally inserted 3-vessel cord. The uterine cavity was cleared of any remaining products of conception or clot. Pitocin was administered per protocol. The uterus was then repaired in 2 layers of 0 Monocryl, the first being a running locked layer with careful attention to avoid incorporation of the endometrium into the repair. The second layer was imbricating suture in a vertical manner with excellent imbrication, and hemostasis was appreciated. Uterus, tubes, and ovaries were examined and again found to be normal. The Max self-retractor was removed, and attention was turned to lysis of adhesions. The omentum was densely adherent to the anterior abdominal wall just superior to the peritoneal incision. These adhesions were taken down at the insertion Electronically Signed By: NICOLAS BROWN DO (JD) 04/21/252017 PATIENT NAME: GAMAL ROSS OPERATIVE REPORT DATE OF : [birth year] REPORT #: [id number] PHYSICIAN: NICOLAS BROWN) PCP: NO PRIMARY CARE PHYSICIAN REPORT IS CONFIDENTIAL AND NOT TO BE RELEASED WITHOUT AUTHORIZATION [facility] [address] [place] [id number] Signed to the anterior abdominal wall using LigaSure bipolar cautery. Excellent hemostasis was appreciated, and the omentum was completely freed from its adhesions. At this point, the peritoneum was reapproximated using 2-0 Vicryl in a running locked manner. Rectus was then made hemostatic with judicious use of Bovie electrocautery and was then plicated loosely in the midline using 3 interrupted sutures of 0 Vicryl. Fascia was reapproximated using 0 Vicryl in a running nonlocked manner. Subcu was made hemostatic using judicious use of Bovie electrocautery, and then subcu was reapproximated using 3-0 Vicryl in a running nonlocked manner. Skin was reapproximated using surgical angelito. The uterus was Crede'd for scant amount of blood, and the patient remained in the PACU for postoperative tap blocks per Anesthesia. Sponge, needle, and instrument counts were correct x2 at the end of the procedure. Of note, the patient did receive some Sanjuanita to the lower uterine segment prior to closure of the peritoneum to ensure hemostasis. Nicolas Brown DO JDW/MODL /[id number] Copies: ~ Electronically Signed By: NICOLAS BROWN DO (JD) 04/21/252017 PATIENT NAME: GAMAL ROSS OPERATIVE REPORT DATE OF : [birth year] REPORT #: [id number] PHYSICIAN: NICOLAS BROWN DO (JD) PCP: NO PRIMARY CARE PHYSICIAN REPORT IS CONFIDENTIAL AND NOT TO BE RELEASED WITHOUT AUTHORIZATION
== END 2025-04-20 12:45 | disposition home or self-care (01) | DRG 787 ==
LOC: FBC 04-16 05:25
PROVIDERS: ADMIT Obstetrics & Gynecology; ATTEND Obstetrics & Gynecology
PROC: 10D00Z1 Extraction of Products of Conception, Low, Open Approach (ICD-10-PCS; principal; 2025-04-16 07:30)
PROC: 3E03329 Introduction of Other Anti-infective into Peripheral Vein, Percutaneous Approach (ICD-10-PCS; principal; 2025-04-16 07:30)
PROC: 30233N1 Transfusion of Nonautologous Red Blood Cells into Peripheral Vein, Percutaneous Approach (ICD-10-PCS; principal; 2025-04-16 07:30)
PROC: 0W9G00Z Drainage of Peritoneal Cavity with Drainage Device, Open Approach (ICD-10-PCS; principal; 2025-04-16 07:30)
DX: O34.211 Maternal care for low transverse scar from previous cesarean delivery (principal); D62 Acute posthemorrhagic anemia; I16.9 Hypertensive crisis, unspecified; Z3A.39 39 weeks gestation of pregnancy; Z37.0 Single live birth; O13.3 Gestational [pregnancy-induced] hypertension without significant proteinuria, third trimester; O90.2 Hematoma of obstetric wound; O90.81 Anemia of the puerperium; Z79.891 Long term (current) use of opiate analgesic; Z87.891 Personal history of nicotine dependence
CPT/HCPCS: 00840; 01961; 36415; 74018; 74177; 76705; 76857; 80053; 80307; 82565; 82570; 83030; 83615; 83735; 84156; 84550; 85025; 85027; 85384; 85610; 85730; 86356; 86850; 86870; 86900; 86901; 86922; 93005; 93010; A9270; J0131; J0360; J0688; J1100; J1171; J1650; J1885; J2003; J2274; J2405; J2590; J2704; J2790; J2795; J3010; J3475; J3490; J7030; J7121; P9016; P9059; Q9967